=== PATIENT | female | born 1940 | race Caucasian/White ===

== ENCOUNTER 2024-04-22 13:44 | Emergency (ER) | payer MEDICARE, OTHER, SELFPAY ==
[2024-04-22 13:54] VITALS: BP 137/67
[2024-04-22 14:25] LABS: % Basophils 0.7 % (0-2); % Immature Granulocytes 0.3 % (0-0.5); % Lymphocytes 24.5 % (20.5-51.1); % Monocytes 12.3 % (1.7-9.3); % Neutrophils 60.2 % (42.2-75.2); Absolute Basophils 0.1 10^3/uL (0-0.2); Absolute Eosinophils 0.1 10^3/uL (0-0.7); Absolute Lymphocytes 1.8 10^3/uL (1.2-3.4); Absolute Monocytes 0.9 10^3/uL (0.1-0.6); Absolute Neutrophils 4.3 10^3/uL (1.4-6.5); Hematocrit 35.9 % (37.0-47.0); Hemoglobin 12.3 g/dL (12.0-16.0); Mean Corp Hgb Conc. 34.3 g/dL (33.0-37.0); Mean Corpuscular Hgb 32.5 pg (27.0-31.0); Mean Corpuscular Volume 94.7 fL (81.0-99.0); Nucleated Red Blood Cells % 0 %; Platelet Count 245 10^3/uL (130-400); Red Blood Cell Count 3.79 10^6/uL (4.20-5.40); Red Cell Dist. Width 12.5 % (11.5-14.5); White Blood Cell Count 7.2 10^3/uL (4.8-10.8)
[2024-04-22 14:40] LABS: ALT (SGPT) 13 U/L (0-35); AST (SGOT) 26 U/L (14-36); Albumin 4.2 g/dl (3.5-5.0); Alkaline Phosphatase 62 U/L (38-126); Blood Urea Nitrogen 15 mg/dl (7-17); COVID-19 Antigen Positive (Negative); Calcium 9.6 mg/dl (8.4-10.2); Carbon Dioxide 23 mmol/L (22-30); Chloride 101 mmol/L (98-107); Glucose 99 mg/dl (70-99); Potassium 4.2 mmol/L (3.5-5.1); Sodium 135 mmol/L (135-145); Total Bilirubin 0.5 mg/dl (0.2-1.3); Total Protein 6.7 g/dl (6.3-8.2); eGFR > 60.00
[2024-04-22 18:17] VITALS: BP 162/77
--- NOTE | 2024-04-22 18:38 | ED.GENMED ---
History of Present Illness
General
Chief Complaint: Change in Mental Status
Time Seen by Provider: 04/22/24 18:24
History of Present Illness
History of Present Illness:
83 yo female presents to the Emergency Department for evaluation of increased confusion. Pt tested positive for COVID 19 this AM, admitted to this hospital for COVID as well. Pt has no complaints but has dementia. Per home health care provider, she has
been short of breath and confused off her baseline. No fever.
Past History
Past History
ED Past Medical History: None
ED Past Surgical History: Other (neck plastic surgery)
Social History
Personal:
Living: with family
Family History
Family History: Other (non contributory)
Review of Systems
Review of Systems
Allergies reviewed?: Yes
All Other Systems: ROS reviewed and negative except as documented in HPI and ROS
Phy Exam
Physical Exam
Physical Exam:
GEN: Well appearing, NAD, WDWN
HEENT: Oral mucosa moist, no scleral icterus
Cardiac: Regular rate and rhythm
Lung: No respiratory distress, no tachypnea, lungs CTAB
MSK: No gross deformity or injuries
Skin: Good color, no pallor or jaundice, no rashes
Neuro: Alert, oriented to baseline.
Psych: Calm, cooperative
Course
Orders/Labs/Results
Orders:
Orders
04/22/24 14:13
CMP [Comprehensive Metabolic Panel] Urgent
COVID-19 Antigen Urgent
Source: Nasal Swab
Complete Blood Count/With Diff Urgent
04/22/24 19:05
CR Chest - 2 Views Urgent
Comment:
Reason For Exam: covid
Abnormal Lab Results
04/22/24
14:13
RBC 3.79 L 10^6/uL
(4.20-5.40)
Hct 35.9 L %
(37.0-47.0)
MCH 32.5 H pg
(27.0-31.0)
Absolute Monos (auto) 0.9 H 10^3/uL
(0.1-0.6)
Monocytes % 12.3 H %
(1.7-9.3)
SARS-CoV-2 Antigen Positive A
(Negative)
04/22/24 14:13
04/22/24 14:13
Vital Signs
Initial and Last Documented VS:
Initial Vital Signs
Temp Pulse Resp BP Pulse Ox
99.0 F 76 18 137/67 99
04/22/24 13:54 04/22/24 13:54 04/22/24 13:54 04/22/24 13:54 04/22/24 13:54
Last Documented Vital Signs
Temp Pulse Resp BP Pulse Ox
99.0 F 71 15 162/77 97
04/22/24 13:54 04/22/24 19:45 04/22/24 19:45 04/22/24 18:17 04/22/24 18:45
MDM/Problems Addressed
MDM/Problems Addressed:
Discussed care w/ patient's son, who agrees that d/c is reasonable. Son declined Paxlovid.
*Critical Care Note
Total Time (30-74mins, 75-104mins- exclusive of procedures): Not Applicable
ED Attending Note
-
Portions of this chart may have been created with voice recognition software.� Occasional wrong word or��sound alike� substitutions may have occurred due to the inherent limitations of voice recognition software.
Discharge Plan
Departure
Patient Disposition: Home (Routine Discharge)
Date of Disposition: 04/22/24
Time of Disposition: 20:25
Patient with high blood pressure during this ER visit?: No
Discharge Problem:
COVID-19
Instructions: COVID-19 ED
Prescriptions:
New
Paxlovid 300 mg (150 mg x 2)-100 mg tablets,dose pack
See Rx Instructions .ROUTE .COMPLEX Qty: 30 0RF
Rx Instructions:
take TWO 150 mg tablets of nirmatrelvir with ONE 100 mg tablet of ritonavir twice daily for 5 days
No Action
meclizine 25 MG tablet
25 mg PO Q8HPRN PRN (Reason: vertigo) Qty: 0 0RF
Interventions
Interventions:
*Risk Screen - Suicide Last Done: 04/22/24 18:12
*General Assessment Last Done: 04/22/24 18:12
*Neglect/Abuse Screening Last Done: 04/22/24 18:12
ED- Fall Risk Assessment Last Done: 04/22/24 18:12
*ED COVID-19 Vaccine History Last Done: 04/22/24 18:12
*Nursing Disposition Last Done: 04/22/24 20:31
ED- Pulmonary Assessment Last Done: 04/22/24 18:17
ED- Neurological Assessment Last Done: 04/22/24 18:12
ED- Cardiac Assessment Last Done: 04/22/24 18:19
Discharge Date and Time
Discharge Date/Time: 04/22/24 20:38
Print Language: MALAY
== END 2024-04-22 20:38 | disposition home or self-care (01) ==
LOC: EMR 13:44
PROVIDERS: Emergency Medicine; EMERGENCY PHYSICIAN Emergency Medicine; FAMILY PHYSICIAN Obstetrics & Gynecology
DX: U07.1 COVID-19 (principal); F03.90 Unspecified dementia, unspecified severity, without behavioral disturbance, psychotic disturbance, mood disturbance, and anxiety
CPT/HCPCS: 99283; 71046; 80053; 85025; 87811